=== PATIENT | male | born 1970 | race Caucasian/White ===

== ENCOUNTER 2016-10-14 11:41 | Emergency (ER) | payer SELFPAY ==
--- NOTE | 2016-10-14 12:51 | Emergency Department Report ---
ED ENT HPI - General Chief complaint: Dental/Oral Stated complaint: TOOTH ABCESS Time Seen by Provider: 10/14/16 12:27 Source: patient Mode of arrival: Ambulatory Limitations: No Limitations - History of Present Illness Initial comments: 46-year-old malesignificant past medical history other than smoking presents with complaint of left-sided toothache since yesterday. Patient states he has had dental cavities which she has not yet dressed in his left upper dental molar region. Denies any pus or blood drainage from mouth patient speaking in full sentences denies any fever or chills, states that his gumline feel swollen. This episode started yesterday states he plans on following up with a dentist within the next 2 weeks. Complaining of mild dental pain. Patient denies headache dizziness nausea or abdominal pain chest pain shortness of breath. A O 3 MD complaint: tooth pain Onset/Timin -: days(s) Location: tooth # (13, 14) Severity: moderate Severity scale (0 -10): 5 Quality: aching Consistency: intermittent Worsens with: swallowing, eating Context- Dental: history of dental caries, poor dental care - Related Data Previous Rx's Medication Instructions Recorded Last Taken Type Amoxicillin [Trimox CAP] 500 mg PO Q8H #30 capsule 10/14/16 Unknown Rx Benzocaine [Orajel Liquid 20%] 1 ml MM Q6HR PRN #1 bottle 10/14/16 Unknown Rx Chlorhexidine Mouthwash [Peridex] 118 ml MM BID #1 bottle 10/14/16 Unknown Rx Ibuprofen [Motrin] 800 mg PO Q8HR PRN #25 tablet 10/14/16 Unknown Rx Allergies Allergy/AdvReac Type Severity Reaction Status Date / Time No Known Allergies Allergy Unverified 10/14/16 11:50 ED Dental HPI - General Chief complaint: Dental/Oral Stated complaint: TOOTH ABCESS Time Seen by Provider: 10/14/16 12:27 Source: patient Mode of arrival: Ambulatory Limitations: No Limitations - Related Data Previous Rx's Medication Instructions Recorded Last Taken Type Amoxicillin [Trimox CAP] 500 mg PO Q8H #30 capsule 10/14/16 Unknown Rx Benzocaine [Orajel Liquid 20%] 1 ml MM Q6HR PRN #1 bottle 10/14/16 Unknown Rx Chlorhexidine Mouthwash [Peridex] 118 ml MM BID #1 bottle 10/14/16 Unknown Rx Ibuprofen [Motrin] 800 mg PO Q8HR PRN #25 tablet 10/14/16 Unknown Rx Allergies Allergy/AdvReac Type Severity Reaction Status Date / Time No Known Allergies Allergy Unverified 10/14/16 11:50 ED Review of Systems ROS: Stated complaint: TOOTH ABCESS Other details as noted in HPI Constitutional: denies: chills, fever Eyes: denies: eye pain, eye discharge, vision change ENT: denies: ear pain, throat pain Respiratory: denies: cough, shortness of breath, wheezing Cardiovascular: denies: chest pain, palpitations Endocrine: no symptoms reported Gastrointestinal: denies: abdominal pain, nausea, diarrhea Genitourinary: denies: urgency, dysuria Musculoskeletal: denies: back pain, joint swelling, arthralgia Skin: denies: rash, lesions Neurological: denies: headache, weakness, paresthesias Psychiatric: denies: anxiety, depression Hematological/Lymphatic: denies: easy bleeding, easy bruising ED Past Medical Hx - Past Medical History Previous Medical History?: No - Surgical History Past Surgical History?: No - Social History Smoking Status: Unknown if ever smoked Substance Use Type: None - Medications Home Medications: Home Medications Medication Instructions Recorded Confirmed Last Taken Type Amoxicillin [Trimox CAP] 500 mg PO Q8H #30 capsule 10/14/16 Unknown Rx Benzocaine [Orajel Liquid 20%] 1 ml MM Q6HR PRN #1 bottle 10/14/16 Unknown Rx Chlorhexidine Mouthwash [Peridex] 118 ml MM BID #1 bottle 10/14/16 Unknown Rx Ibuprofen [Motrin] 800 mg PO Q8HR PRN #25 tablet 10/14/16 Unknown Rx ED Physical Exam - General Limitations: No Limitations General appearance: alert, in no apparent distress - Head Head exam: Present: atraumatic, normocephalic - Eye Eye exam: Present: normal appearance, PERRL, EOMI - ENT ENT exam: Present: mucous membranes moist - Expanded ENT Exam Expanded Teeth exam: Present: dental caries, dental tenderness # (Y 13 [id number]) 1 - Dental Tenderness (pain in teeth 13 1415, visible damage to teeth with severe cavities) - Neck Neck exam: Present: normal inspection, full ROM - Respiratory Respiratory exam: Present: normal lung sounds bilaterally. Absent: respiratory distress - Cardiovascular Cardiovascular Exam: Present: regular rate, normal rhythm. Absent: systolic murmur, diastolic murmur, rubs, gallop - GI/Abdominal GI/Abdominal exam: Present: soft, normal bowel sounds - Rectal Rectal exam: Present: deferred - Extremities Exam Extremities exam: Present: normal inspection - Back Exam Back exam: Present: normal inspection - Neurological Exam Neurological exam: Present: alert, oriented X3, CN II-XII intact, normal gait - Psychiatric Psychiatric exam: Present: normal affect, normal mood - Skin Skin exam: Present: warm, dry, intact, normal color. Absent: rash ED Course Vital Signs 10/14/16 11:47 Temperature 98.6 F Pulse Rate 89 Respiratory 18 Rate Blood Pressure 175/112 O2 Sat by Pulse 100 Oximetry ED Medical Decision Making - Medical Decision Making A/P: dental cavities, toothache, dental abscess 1- Motrin when necessary, amoxicillin ten-day course, Orajel when necessary, Peridex mouthwash daily basis, 2- I provided patient with information for multiple dental clinics to follow up and stressed the importance of dental follow-up as he has multiple cavities that require dental fixation or instrumentation 3- no clinical signs of facial abscess, no Cain's angina, no induration or cellulitis of floor of mouth or tongue 4- patient able to tolerate by mouth before discharge 5- no signs of facial infection. Advised patient that if he does not take antibiotics with follow-up with a dentist as soon as possible that a can result in potentially serious or dangerous infection to develop in jaw or face. Patient states that he understood these instructions. I advised patient to return to the ED for any persistent unrelenting nausea or vomiting fever or chills or headaches, pus or blood drainage from mouth. Critical care attestation.: If time is entered above; I have spent that time in minutes in the direct care of this critically ill patient, excluding procedure time. ED Disposition Clinical Impression: Pain due to dental caries Disposition: TO HOME OR SELFCARE Is pt being admited?: No Does the pt Need Aspirin: No Condition: Stable Instructions: Dental Abscess (ED), Dental Caries (ED), Hypertension (ED), Toothache (ED) Additional Instructions: [email or web address] Prescriptions: Amoxicillin [Trimox CAP] 500 mg PO Q8H #30 capsule Benzocaine [Orajel Liquid 20%] 1 ml MM Q6HR PRN #1 bottle PRN Reason: Toothache Chlorhexidine Mouthwash [Peridex] 118 ml MM BID #1 bottle Ibuprofen [Motrin] 800 mg PO Q8HR PRN #25 tablet PRN Reason: Pain Referrals: [facility] [Outside] - 3-5 Days HERSON COLLADO MD [Staff Physician] - 3-5 Days [facility] [Provider Group] - 3-5 Days [facility] [Provider Group] - 3-5 Days Forms: Work/School Release Form(ED) Time of Disposition: 12:51
[2016-10-14 13:12] VITALS: BP 179/93
== END 2016-10-14 13:19 | disposition home or self-care (01) ==
LOC: ED 11:41
DX: K02.9 Dental caries, unspecified (principal)
CPT/HCPCS: 99282

== ENCOUNTER 2017-12-20 12:08 | Inpatient (IN) | payer OTHER ==
[2017-12-20] MEDS ORDERED: ZOFRAN ODT PO ONE (13:09)
[2017-12-20] MEDS ORDERED: BENTYL IM ONE ×2 (13:09→13:12)
[2017-12-20] MEDS ORDERED: TORADOL IM ONE (13:09)
--- NOTE | 2017-12-20 13:11 | Emergency Department Report ---
Blank Doc - Documentation Documentation: Patient is a 47-year-old Male who's had 3 days of central suprapubic abdominal discomfort. Patient states a crampy type pain. He's had 3-4 episodes of vomiting. Patient also had one bout of loose stools this morning. Patient states 3 days ago he had one episode of dysuria that was was excruciating however this is resolved. Patient denies any fevers chills at this time. Patient on focused physical exam does have some suprapubic and right lower quadrant discomfort. There is no rebound or guarding. Patient will have a CT of the abdomen and pelvis performed as well as urinalysis and blood work. Patient is given meds for symptomatic relief
[2017-12-20] MEDS ORDERED: ZOFRAN ODT ONE (13:12)
[2017-12-20] MEDS ORDERED: TORADOL ONE (13:12)
[2017-12-20 13:26] LABS: Basophils % (Auto) 0.2 % (0.0-1.8); Hematocrit 45.3 % (35.5-45.6); Hemoglobin 15.1 gm/dl (11.8-15.2); Lymphocytes # (Auto) 0.5 K/mm3 (1.2-5.4); Mean Corpuscular HGB Conc 33 % (32-34); Mean Corpuscular Hemoglobin 30 pg (28-32); Mean Corpuscular Volume 91 fl (84-94); Monocytes # (Auto) 1.1 K/mm3 (0.0-0.8); Monocytes % (Auto) 9.5 % (0.0-7.3); Platelet Count 321 K/mm3 (140-440); Red Blood Count 4.97 M/mm3 (3.65-5.03)
[2017-12-20 13:42] LABS: Albumin 3.4 g/dL (3.9-5); Calcium 9.2 mg/dL (8.4-10.2)
[2017-12-20] MEDS ORDERED: NACL 0.9% 1000 ML 1,000 ML IV ONE ×3 (14:05→15:27)
--- NOTE | 2017-12-20 14:09 | Cat Scan Report ---
CT ABDOMEN PELVIS WITHOUT CONTRAST: HISTORY: Suprapubic pain, nausea, vomiting and diarrhea. COMPARISON: none. TECHNIQUE: Helical CT in 1.25mm intervals without IV contrast. Sagittal and coronal reconstructions. FINDINGS: Lung bases: Normal. Liver: Normal. Biliary system: There is suggestion of some sludge layering in the gallbladder. No calcified gallstones. No biliary dilatation or inflammation. Pancreas: Normal. Spleen: Normal. Kidneys/ureters/bladder: The kidneys are normal size, contour and position. A punctate calyceal stone is identified at the inferior pole the right kidney. A 1 cm cyst is noted near mid pole of the right kidney. No evidence for ureteral stones or hydronephrosis. The bladder is partially complex but diffuse bladder wall thickening is evident measuring up to 1.2 cm. Cystitis could be considered. Adrenal glands: Normal. Aorta: Normal. Intestines: No oral contrast was administered which limits this exam. Free air is identified along the anterior abdominal wall spanning from the liver to the pelvis. Bowel perforation is highly suspected. The site of perforation appears to be in the sigmoid region where there are numerous diverticula. The sigmoid colon is thickened as well. A perforated diverticulitis could be considered. Appendix: Normal. Ascites: There is small to medium fluid in the pelvis and between bowel loops in the mesentery. No obvious encapsulated mature abscess. Adenopathy: None. Musculoskeletal: Normal. IMPRESSION: Free air in the abdomen consistent with visceral perforation. I suspect this may be secondary to a perforated diverticulum or diverticulitis. Punctate right renal calculus. Thickened bladder wall, correlate for cystitis. Mild degree of fluid in the abdomen as described. Probable sludge in the gallbladder. These findings were discussed with Dr. Johnson in the emergency department at 1404 hrs.
[2017-12-20 14:20] LABS: Bilirubin,Urine NEG (Negative); Blood,Urine MOD (Negative); Color,Urine Yellow (Yellow); Mucus,Urine FEW /HPF; Urobilinogen,Urine < 2.0 mg/dL (<2.0)
--- NOTE | 2017-12-20 14:54 | Emergency Department Report ---
ED Abdominal Pain HPI - General Chief Complaint: Abdominal Pain Stated Complaint: LOWER ABD PAIN Time Seen by Provider: 12/20/17 12:40 Source: patient Mode of arrival: Wheelchair Limitations: No Limitations - History of Present Illness Initial Comments: Patient is a 47-year-old Male who's had 3 days of central suprapubic abdominal discomfort. Patient states a crampy type pain. He's had 3-4 episodes of vomiting. Patient also had one bout of loose stools this morning. Patient states 3 days ago he had one episode of dysuria that was was excruciating however this is resolved. Patient denies any fevers chills at this time. MD Complaint: abdominal pain -: Gradual (3 days) Severity scale (0 -10): 6 Improves With: nothing Worsens With: nothing Associated Symptoms: nausea, vomiting, diarrhea. denies: hematemesis, hematochezia - Related Data Home Medications Medication Instructions Recorded Confirmed Last Taken No Known Home Medications [No 12/20/17 12/20/17 Unknown Reported Home Medications] Allergies Allergy/AdvReac Type Severity Reaction Status Date / Time No Known Allergies Allergy Unverified 10/14/16 11:50 ED Review of Systems ROS: Stated complaint: LOWER ABD PAIN Other details as noted in HPI Comment: All other systems reviewed and negative ED Past Medical Hx - Past Medical History Previous Medical History?: No - Surgical History Past Surgical History?: No - Social History Smoking Status: Never Smoker Substance Use Type: Marijuana - Medications Home Medications: Home Medications Medication Instructions Recorded Confirmed Last Taken Type No Known Home Medications [No 12/20/17 12/20/17 Unknown History Reported Home Medications] ED Physical Exam - General Limitations: No Limitations General appearance: alert, in no apparent distress, cachectic - Head Head exam: Present: atraumatic, normocephalic - Eye Eye exam: Present: normal appearance - ENT ENT exam: Present: mucous membranes moist - Neck Neck exam: Present: normal inspection - Respiratory Respiratory exam: Present: normal lung sounds bilaterally. Absent: respiratory distress, wheezes, rales, rhonchi - Cardiovascular Cardiovascular Exam: Present: regular rate, normal rhythm. Absent: systolic murmur, diastolic murmur, rubs, gallop - GI/Abdominal GI/Abdominal exam: Present: soft, tenderness (suprapubic), hypoactive bowel sounds. Absent: distended, guarding, rebound, rigid, normal bowel sounds - Rectal Rectal exam: Present: deferred - Extremities Exam Extremities exam: Present: normal inspection - Back Exam Back exam: Present: normal inspection - Neurological Exam Neurological exam: Present: alert, oriented X3 - Psychiatric Psychiatric exam: Present: normal affect, normal mood - Skin Skin exam: Present: warm, dry, intact, normal color. Absent: rash ED Course Vital Signs 12/20/17 12/20/17 12/20/17 12:12 12:34 13:19 Temperature 97.9 F Pulse Rate 115 H Respiratory 16 14 15 Rate Blood Pressure 139/93 O2 Sat by Pulse 93 Oximetry 12/20/17 13:32 Temperature Pulse Rate Respiratory 18 Rate Blood Pressure O2 Sat by Pulse Oximetry ED Medical Decision Making - Lab Data Result diagrams: 12/20/17 13:15 12/20/17 13:15 Lab Results 12/20/17 12/20/17 12/20/17 Range/Units 13:15 13:15 13:49 WBC 11.5 H (4.5-11.0) K/mm3 RBC 4.97 (3.65-5.03) M/mm3 Hgb 15.1 (11.8-15.2) gm/dl Hct 45.3 (35.5-45.6) % MCV 91 (84-94) fl MCH 30 (28-32) pg MCHC 33 (32-34) % RDW 14.0 (13.2-15.2) % Plt Count 321 (140-440) K/mm3 Lymph % (Auto) 4.0 L (13.4-35.0) % [place] % (Auto) 9.5 H (0.0-7.3) % Eos % (Auto) 0.0 (0.0-4.3) % Baso % (Auto) 0.2 (0.0-1.8) % Lymph # 0.5 L (1.2-5.4) K/mm3 [place] # 1.1 H (0.0-0.8) K/mm3 Eos # 0.0 (0.0-0.4) K/mm3 Baso # 0.0 (0.0-0.1) K/mm3 Seg Neutrophils % 86.3 H (40.0-70.0) % Seg Neutrophils # 9.9 H (1.8-7.7) K/mm3 Sodium 136 L (137-145) mmol/L Potassium 4.0 (3.6-5.0) mmol/L Chloride 91.3 L (98-107) mmol/L Carbon Dioxide 26 (22-30) mmol/L Anion Gap 23 mmol/L BUN 61 H (9-20) mg/dL Creatinine 2.2 H (0.8-1.5) mg/dL Estimated GFR 33 ml/min BUN/Creatinine Ratio 28 % Glucose 128 H (75-100) mg/dL Calcium 9.2 (8.4-10.2) mg/dL Total Bilirubin 0.90 (0.1-1.2) mg/dL AST 16 (5-40) units/L ALT 13 (7-56) units/L Alkaline Phosphatase 56 (35-129) units/L Total Protein 8.2 (6.3-8.2) g/dL Albumin 3.4 L (3.9-5) g/dL Albumin/Globulin Ratio 0.7 % Urine Color Yellow (Yellow) Urine Turbidity Cloudy (Clear) Urine pH 5.0 (5.0-7.0) Ur Specific [place] 1.020 (1.003-1.030) Urine Protein 100 mg/dl (Negative) mg/dL Urine Glucose (UA) Neg (Negative) mg/dL Urine Ketones Tr (Negative) mg/dL Urine Blood Mod (Negative) Urine Nitrite Neg (Negative) Urine Bilirubin Neg (Negative) Urine Urobilinogen < 2.0 (<2.0) mg/dL Ur Leukocyte Esterase Neg (Negative) Urine WBC (Auto) 5.0 (0.0-6.0) /HPF Urine RBC (Auto) 2.0 (0.0-6.0) /HPF U Epithel Cells (Auto) 1.0 (0-13.0) /HPF Urine Mucus Few /HPF - Radiology Data Patient: ELENA TATUM MR#: [id number] : 1970 Acct:[id number] Age/Sex: 47 / M ADM Date: 12/20/17 Loc: ED Attending Dr: Ordering Physician: JUAN JOHNSON MD Date of Service: 12/20/17 Procedure(s): CT abdomen pelvis wo con Accession Number(s): [id number] cc: JUAN JOHNSON MD CT ABDOMEN PELVIS WITHOUT CONTRAST: HISTORY: Suprapubic pain, nausea, vomiting and diarrhea. COMPARISON: none. TECHNIQUE: Helical CT in 1.25mm intervals without IV contrast. Sagittal and coronal reconstructions. FINDINGS: Lung bases: Normal. Liver: Normal. Biliary system: There is suggestion of some sludge layering in the gallbladder. No calcified gallstones. No biliary dilatation or inflammation. Pancreas: Normal. Spleen: Normal. Kidneys/ureters/bladder: The kidneys are normal size, contour and position. A punctate calyceal stone is identified at the inferior pole the right kidney. A 1 cm cyst is noted near mid pole of the right kidney. No evidence for ureteral stones or hydronephrosis. The bladder is partially complex but diffuse bladder wall thickening is evident measuring up to 1.2 cm. Cystitis could be considered. Adrenal glands: Normal. Aorta: Normal. Intestines: No oral contrast was administered which limits this exam. Free air is identified along the anterior abdominal wall spanning from the liver to the pelvis. Bowel perforation is highly suspected. The site of perforation appears to be in the sigmoid region where there are numerous diverticula. The sigmoid colon is thickened as well. A perforated diverticulitis could be considered. Appendix: Normal. Ascites: There is small to medium fluid in the pelvis and between bowel loops in the mesentery. No obvious encapsulated mature abscess. Adenopathy: None. Musculoskeletal: Normal. IMPRESSION: Free air in the abdomen consistent with visceral perforation. I suspect this may be secondary to a perforated diverticulum or diverticulitis. Punctate right renal calculus. Thickened bladder wall, correlate for cystitis. Mild degree of fluid in the abdomen as described. Probable sludge in the gallbladder. These findings were discussed with Dr. Johnson in the emergency department at 1404 hrs. Transcribed By: TTR Dictated By: HERNANDEZ NOBLE JR, MD Electronically Authenticated By: HERNANDEZ NOBLE JR, MD Signed Date/Time: 12/20/17 1409 - Medical Decision Making Despite the fact that the patient's abdomen is soft patient's CT does have extensive free air consistent with a perforated diverticulum. The patient has slight elevation of white count. Patient also has some renal failure is present. Patient does not have a history of renal failure. Patient started on aggressive IV fluids. Patient started on sepsis protocol. Patient given a dose of Zosyn and with general surgery has been a consulted Patient to be admitted to the hospitalist service under Dr. Evans Critical Care Time: Yes (30) Critical care attestation.: If time is entered above; I have spent that time in minutes in the direct care of this critically ill patient, excluding procedure time. ED Disposition Clinical Impression: Perforated diverticulum, Acute renal failure Disposition: OP ADMIT IP TO THIS HOSP Is pt being admited?: Yes Does the pt Need Aspirin: No Condition: Stable Referrals: PRIMARY CARE, [Primary Care Provider] - 3-5 Days Time of Disposition: 15:29
[2017-12-20] MEDS ORDERED: ZOSYN/NS 4.5GM/100ML 4.5 GM/100 ML VIAL IV SCH (15:00)
--- NOTE | 2017-12-20 15:24 | History and Physical Report ---
History of Present Illness Chief complaint: My stomach hurts History of present illness: 47 YO Male with No PMH presents to ED for evaluation. Pt states that he has experienced abdominal pain over the past 3 days with persistent symptoms over the same time frame. Pt states that pain is 6/10, crampy in nature, associated with nausea, and 3-4 episodes of vomiting, and one loose stools. Pt denies fever , chills, CP, Palpitations, Syncope, Trauma, BRBPR, unintentional weight loss, night sweats, BRBPR, hematuria, flank pain, or recent ill contacts. Pt seen and evaluated in ED and found to have SIRS, ARF, Diverticulosis with Perforated Viscus. Surgery consulted in ED. Past History Past Medical History: No medical history, other (reviewed) Past Surgical History: No surgical history, Other (reviewed) Social history: single. denies: smoking, alcohol abuse, prescription drug abuse Family history: no significant family history (reviewed) Medications and Allergies Allergies Allergy/AdvReac Type Severity Reaction Status Date / Time No Known Allergies Allergy Unverified 10/14/16 11:50 Home Medications Medication Instructions Recorded Confirmed Last Taken Type No Known Home Medications [No 12/20/17 12/20/17 Unknown History Reported Home Medications] Active Meds: Active Medications Piperacillin Sod/Tazobactam Sod (Zosyn/Ns 4.5gm/100ml) 4.5 gm in 100 mls @ 200 mls/hr IV ONCE RENÉ Sodium Chloride (Nacl 0.9% 1000 Ml) 1,000 mls @ 999 mls/hr IV BOLUS ONE Stop: 12/20/17 15:27 Review of Systems Constitutional: no weight loss, no weight gain, no fever, no chills, no sweats Ears, nose, mouth and throat: no ear pain, no ear discharge, no tinnitis, no decreased hearing, no nose pain, no nasal congestion, no nasal discharge, no sinus pressure Cardiovascular: no chest pain, no orthopnea, no palpitations, no rapid/ irregular heart beat, no edema, no syncope Respiratory: no cough, no cough with sputum, no excessive sputum, no hemoptysis Gastrointestinal: nausea, vomiting Rectal: no pain, no incontinence, no bleeding Musculoskeletal: no neck stiffness, no neck pain, no shooting arm pain, no arm numbness/tingling, no low back pain Integumentary: no rash, no pruritis, no redness, no sores, no wounds Neurological: no head injury, no transient paralysis, no paralysis, no weakness , no parathesias, no numbness, no tingling Psychiatric: no anxiety, no memory loss, no change in sleep habits, no sleep disturbances, no insomnia, no hypersomnia, no change in appetite, no change in libido Endocrine: no cold intolerance, no heat intolerance, no polyphagia, no excessive thirst, no polydipsia, no polyuria, no nocturia, no excessive sweating Hematologic/Lymphatic: no easy bruising, no easy bleeding, no lymphadenopathy, no lymphedema Allergic/Immunologic: no urticaria, no allergic rhinitis, no wheezing, no persistent infections, no anaphylaxis Exam - Constitutional Vitals: Temp Pulse Resp BP Pulse Ox 97.9 F 115 H 18 139/93 93 12/20/17 12:12 12/20/17 12:12 12/20/17 13:32 12/20/17 12:12 12/20/17 12:12 General appearance: Present: mild distress - EENT Eyes: Present: PERRL ENT: hearing intact, clear oral mucosa - Neck Neck: Present: supple, normal ROM - Respiratory Respiratory effort: normal Respiratory: bilateral: CTA - Cardiovascular Heart Sounds: Present: S1 & S2. Absent: rub, click - Extremities Extremities: pulses symmetrical, No edema Peripheral Pulses: within normal limits - Abdominal General gastrointestinal: Present: soft, non-tender, non-distended, normal bowel sounds Male genitourinary: Present: normal - Integumentary Integumentary: Present: clear, warm, dry - Musculoskeletal Musculoskeletal: gait normal, strength equal bilaterally - Psychiatric Psychiatric: appropriate mood/affect, intact judgment & insight - Neurologic Neurologic: CNII-XII intact, moves all extremities Results - Labs CBC & Chem 7: 12/20/17 13:15 12/20/17 13:15 Labs: Abnormal lab results 12/20/17 12/20/17 Range/Units 13:15 13:15 WBC 11.5 H (4.5-11.0) K/mm3 Lymph % (Auto) 4.0 L (13.4-35.0) % [place] % (Auto) 9.5 H (0.0-7.3) % Lymph # 0.5 L (1.2-5.4) K/mm3 [place] # 1.1 H (0.0-0.8) K/mm3 Seg Neutrophils % 86.3 H (40.0-70.0) % Seg Neutrophils # 9.9 H (1.8-7.7) K/mm3 Sodium 136 L (137-145) mmol/L Chloride 91.3 L (98-107) mmol/L BUN 61 H (9-20) mg/dL Creatinine 2.2 H (0.8-1.5) mg/dL Glucose 128 H (75-100) mg/dL Albumin 3.4 L (3.9-5) g/dL Assessment and Plan - Patient Problems (1) SIRS (systemic inflammatory response syndrome) Current Visit: Yes Status: Acute Plan to address problem: IV antibiotic therapy, blood cultures, CBC, CMP, chest x ray, urinalysis, serial lactic acid. (2) Diverticulosis Current Visit: Yes Status: Acute Qualifiers: Diverticulosis site: diverticulosis of large intestine Plan to address problem: CT Abdomen pelvis, IVF resuscitation, serial abdominal exam, NPO, (3) Acute renal failure Current Visit: Yes Status: Acute Qualifiers: Acute renal failure type: with acute tubular necrosis Qualified Code(s): N17.0 - Acute kidney failure with tubular necrosis Plan to address problem: IVF resuscitation, monitor uop q shift, supportive care. (4) Perforated diverticulum Current Visit: Yes Status: Acute Plan to address problem: CT Abdomen pelvis, serial abdominal exam, surgery consulted, NPO, IVF resuscitation. (5) DVT prophylaxis Current Visit: Yes Status: Acute Plan to address problem: SCD to BLE while in bed.
[2017-12-20] MEDS ORDERED: SODIUM CHLORIDE FLUSH SYRINGE 10 ML IV PRN (15:26)
[2017-12-20] MEDS ORDERED: MORPHINE IV PRN (15:26)
[2017-12-20] MEDS ORDERED: TYLENOL PO PRN (15:26)
[2017-12-20] MEDS ORDERED: PROVENTIL IH PRN (15:26)
[2017-12-20] MEDS ORDERED: ZOFRAN IV PRN (15:26)
--- NOTE | 2017-12-20 15:30 | Anesthesia Consultation ---
Anesthesia Consult and Med Hx Date of service: 12/20/17 - Airway Anesthetic Teeth Evaluation: Poor ROM Head & Neck: Adequate Mental/Hyoid Distance: Adequate Mallampati Class: Class I Intubation Access Assessment: Good - Pulmonary Exam CTA: No (exp rhoncii) - Cardiac Exam Cardiac Exam: RRR - Pre-Operative Health Status ASA Pre-Surgery Classification: ASA2 Proposed Anesthetic Plan: MAC - Pre-Anesthesia Comment Pre-Anesthesia Comments: admitted with abdominal pain. CT impression-free air consistent with perforated visceral, may be secondary to diverticulum/ diverticulitis. - Pulmonary Hx Smoking: Yes (marijuana ) Hx Respiratory Symptoms: Yes (recent cold 7 days ago, productive cough ) - Endocrine Hx Renal Disease: No (elevated creatinine, 2.2 )
[2017-12-20] MEDS ORDERED: LEVAQUIN 500MG/100ML 500 MG/100 ML BAG IV NR (16:00)
[2017-12-20] MEDS ORDERED: FLAGYL 500 MG/100 ML 500 MG/100 ML BAG IV SCH (16:00)
[2017-12-20] MEDS ORDERED: D5/0.45NS 1,000 ML IV SCH (16:00)
--- NOTE | 2017-12-20 17:54 | Consultation ---
History of Present Illness Consult date: 12/20/17 Chief complaint: abdominal pain - History of present illness History of present illness: 47 yo M with no PMHx presents to ER with 2 days of crampy suprapubic abdominal pain. He states that the pain was moderate in intensity upon onset and has gradually improved. It does not radiate. The pain was associated with nausea and so the patient forced himself to drink water and vomit until the emesis was clear. He also tried some charcoal to help with the pain. He states he was having normal BMs and the last BM was loose. He is passing flatus. He admits to intermittent chills. No measured fever. No sick contacts. He has never had symptoms like this in the past. He has never had a colonoscopy. He also admits to pain with urination and difficulty urinating. He has not had a solid meal in 2 days but has been drinking water. At this time the patient states his pain is better. He is not nauseated. Past History Past Medical History: No medical history Past Surgical History: No surgical history Social history: smoking (marijuana). denies: alcohol abuse, prescription drug abuse Family history: no significant family history (no family history of colon or Gi malignancy) Medications and Allergies Allergies Allergy/AdvReac Type Severity Reaction Status Date / Time No Known Allergies Allergy Unverified 10/14/16 11:50 Home Medications Medication Instructions Recorded Confirmed Last Taken Type No Known Home Medications [No 12/20/17 12/20/17 Unknown History Reported Home Medications] Active Meds: Active Medications Acetaminophen (Tylenol) 650 mg PO Q4H PRN PRN Reason: Pain MILD(1-3)/Fever >100.5/SERNA Albuterol (Proventil) 2.5 mg IH Q4HRT PRN PRN Reason: Shortness Of Breath Piperacillin Sod/Tazobactam Sod (Zosyn/Ns 4.5gm/100ml) 4.5 gm in 100 mls @ 200 mls/hr IV ONCE RENÉ Last Admin: 12/20/17 15:31 Dose: 200 mls/hr Levofloxacin/Dextrose (Levaquin 500mg/100ml) 500 mg in 100 mls @ 100 mls/hr IV PREOP NR; Protocol Stop: 12/21/17 06:00 Metronidazole (Flagyl 500 Mg/100 Ml) 500 mg in 100 mls @ 200 mls/hr IV ONCE RENÉ ; Protocol Sodium Chloride (Nacl 0.9% 1000 Ml) 1,000 mls @ 150 mls/hr IV ONCE ONE Stop: 12/20/17 22:06 Metronidazole (Flagyl 500 Mg/100 Ml) 500 mg in 100 mls @ 100 mls/hr IV Q8HR RENÉ ; Protocol Sodium Chloride (Nacl 0.9% 1000 Ml) 1,000 mls @ 125 mls/hr IV DIRECT RENÉ Levofloxacin/Dextrose (Levaquin 500mg/100ml) 500 mg in 100 mls @ 100 mls/hr IV Q24HR RENÉ; Protocol Morphine Sulfate (Morphine) 2 mg IV Q4H PRN PRN Reason: Pain, Moderate (4-6) Ondansetron HCl (Zofran) 4 mg IV Q8H PRN PRN Reason: Nausea And Vomiting Sodium Chloride (Sodium Chloride Flush Syringe 10 Ml) 10 ml IV BID RENÉ Sodium Chloride (Sodium Chloride Flush Syringe 10 Ml) 10 ml IV PRN PRN PRN Reason: LINE FLUSH Review of Systems All systems: negative (10 pt ROS performed and negative except for that listed in HPI) Exam Vital Signs Temp Pulse Resp BP Pulse Ox 97.9 F 115 H 16 139/93 93 12/20/17 12:12 12/20/17 12:12 12/20/17 12:12 12/20/17 12:12 12/20/17 12:12 Narrative exam: Gen: AAOx3. NAD ENT: no scleral icterus or conjunctival pallor CV: S1, s2+ Resp: even and unlabored Abd: soft, ND, mild TTP in suprapubic region and LLQ. no r/r/g Ext: no c/c/e Results - Labs 12/20/17 13:15 12/20/17 13:15 Abnormal lab results 12/20/17 12/20/17 Range/Units 13:15 13:15 WBC 11.5 H (4.5-11.0) K/mm3 Lymph % (Auto) 4.0 L (13.4-35.0) % Davison % (Auto) 9.5 H (0.0-7.3) % Lymph # 0.5 L (1.2-5.4) K/mm3 Davison # 1.1 H (0.0-0.8) K/mm3 Seg Neutrophils % 86.3 H (40.0-70.0) % Seg Neutrophils # 9.9 H (1.8-7.7) K/mm3 Sodium 136 L (137-145) mmol/L Chloride 91.3 L (98-107) mmol/L BUN 61 H (9-20) mg/dL Creatinine 2.2 H (0.8-1.5) mg/dL Glucose 128 H (75-100) mg/dL Albumin 3.4 L (3.9-5) g/dL Diabetes panel 12/20/17 Range/Units 13:15 Sodium 136 L (137-145) mmol/L Potassium 4.0 (3.6-5.0) mmol/L Chloride 91.3 L (98-107) mmol/L Carbon Dioxide 26 (22-30) mmol/L BUN 61 H (9-20) mg/dL Creatinine 2.2 H (0.8-1.5) mg/dL Glucose 128 H (75-100) mg/dL Calcium 9.2 (8.4-10.2) mg/dL AST 16 (5-40) units/L ALT 13 (7-56) units/L Alkaline Phosphatase 56 (35-129) units/L Total Protein 8.2 (6.3-8.2) g/dL Albumin 3.4 L (3.9-5) g/dL Calcium panel 12/20/17 Range/Units 13:15 Calcium 9.2 (8.4-10.2) mg/dL Albumin 3.4 L (3.9-5) g/dL Pituitary panel 12/20/17 Range/Units 13:15 Sodium 136 L (137-145) mmol/L Potassium 4.0 (3.6-5.0) mmol/L Chloride 91.3 L (98-107) mmol/L Carbon Dioxide 26 (22-30) mmol/L BUN 61 H (9-20) mg/dL Creatinine 2.2 H (0.8-1.5) mg/dL Glucose 128 H (75-100) mg/dL Calcium 9.2 (8.4-10.2) mg/dL Adrenal panel 12/20/17 Range/Units 13:15 Sodium 136 L (137-145) mmol/L Potassium 4.0 (3.6-5.0) mmol/L Chloride 91.3 L (98-107) mmol/L Carbon Dioxide 26 (22-30) mmol/L BUN 61 H (9-20) mg/dL Creatinine 2.2 H (0.8-1.5) mg/dL Glucose 128 H (75-100) mg/dL Calcium 9.2 (8.4-10.2) mg/dL Total Bilirubin 0.90 (0.1-1.2) mg/dL AST 16 (5-40) units/L ALT 13 (7-56) units/L Alkaline Phosphatase 56 (35-129) units/L Total Protein 8.2 (6.3-8.2) g/dL Albumin 3.4 L (3.9-5) g/dL - Imaging CT scan - abdomen: report reviewed, image reviewed CT scan - pelvis: report reviewed, image reviewed Assessment and Plan 47 yo M with 1. pneumoperitoneum, likely perforated diverticulitis 2. BRONWYN likely secondary to dehydration Plan; 1. Based on the patients clinical findings, he is stable without peritoneal signs or significant abdominal pain. The perforation has likely sealed off. We will admit patient to hospitalist service 2. strict NPO 3. IVF - NS@150cc/hr. Pt received multiple 1L NS boluses in ER 4. prn pain and nausea control 5. 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 DVT ppx 7. activity as tolerated 8. serial abdominal exams. If patient does not improve clinically or abdominal exam/labs worsen, he may require diagnostic laparoscopy, washout. I discussed the options of surgery and conservative management with the patient and he understands and is agreeable to the plan. Thank you for this consultation, please call with questions or concerns.
[2017-12-20] MEDS ORDERED: MAXIPIME/NS 2 GM/100 ML 2 GM/100 ML BAG IV SCH ×2 (18:00→22:00)
[2017-12-20] MEDS: NACL 0.9% 1000 ML 1,000 ML IV SCH (18:54)
[2017-12-20] MEDS: FLAGYL 500 MG/100 ML 500 MG/100 ML BAG IV SCH (23:18)
[2017-12-20] MEDS: SODIUM CHLORIDE FLUSH SYRINGE 10 ML IV SCH (23:18)
[2017-12-21] MEDS: NACL 0.9% 1000 ML 1,000 ML IV SCH (04:10)
[2017-12-21] MEDS: FLAGYL 500 MG/100 ML 500 MG/100 ML BAG IV SCH ×3 (05:28→21:27)
[2017-12-21 05:43] LABS: Basophils % (Auto) 0.2 % (0.0-1.8); Hematocrit 37.7 % (35.5-45.6); Hemoglobin 12.7 gm/dl (11.8-15.2); Lymphocytes # (Auto) 0.4 K/mm3 (1.2-5.4); Lymphocytes % (Auto) 3.3 % (13.4-35.0); Mean Corpuscular HGB Conc 34 % (32-34); Mean Corpuscular Hemoglobin 31 pg (28-32); Mean Corpuscular Volume 91 fl (84-94); Monocytes % (Auto) 7.6 % (0.0-7.3); Platelet Count 296 K/mm3 (140-440); Red Blood Count 4.16 M/mm3 (3.65-5.03); Red Cell Distribution Width 14.2 % (13.2-15.2)
[2017-12-21 06:00] LABS: Calcium 8.3 mg/dL (8.4-10.2)
[2017-12-21] MEDS: SODIUM CHLORIDE FLUSH SYRINGE 10 ML IV SCH ×2 (09:51→21:27)
[2017-12-21] MEDS ORDERED: LEVAQUIN 250MG/50ML 250 MG/50 ML BAG IV SCH (10:00)
[2017-12-21] MEDS ORDERED: LEVAQUIN 500MG/100ML 500 MG/100 ML BAG IV SCH (10:00)
--- NOTE | 2017-12-21 13:35 | Progress Note ---
Assessment and Plan 47 yo M with 1. pneumoperitoneum, likely perforated diverticulitis 2. BRONWYN likely secondary to dehydration 3. pelvic fluid, possible abscess Plan: Patient continues to remain stable without abdominal pain. WBC mildly increased 1. NPO except ice chips 2. IVF - change to D5NS, BUN/Game Attendant improving 3. prn pain and nausea control 4. repeat CT scan A/P with oral, rectal, and IV contrast in AM 12/22/17 5. DVT ppx 6. activity as tolerated 7. repeat CBC and BMP in am 8. monitor for fevers Further recs pending Ct scan in AM. D/W Dr. Shook and case management Thank you for this consultation, please call with questions or concerns. Subjective Date of service: 12/21/17 Narrative: Pt seen and examined. States abdominal pain has resolved. He is having flatus but has not had a BM. + temp of 100.3 but patient states he had on multiple sheets prior to this measurement. He is hungry. No n/v. Objective Vital Signs - 12hr 12/21/17 12/21/17 04:41 09:30 Temperature 99.9 F H Pulse Rate 95 H Respiratory 18 Rate Blood Pressure 133/95 O2 Sat by Pulse 94 96 Oximetry - General physical appearance Narrative Exam: Gen: AAOx3. NAD CV: S1, S2+ Resp; even and unlabored Abd: soft, mildly distended, NT. no r/r/g Ext: no c/c/e - Labs 12/21/17 05:13 12/21/17 05:13 Diabetes panel 12/20/17 12/21/17 Range/Units 13:15 05:13 Sodium 136 L 141 (137-145) mmol/L Potassium 4.0 4.1 (3.6-5.0) mmol/L Chloride 91.3 L 101.6 (98-107) mmol/L Carbon Dioxide 26 26 (22-30) mmol/L BUN 61 H 50 H (9-20) mg/dL Creatinine 2.2 H 1.4 (0.8-1.5) mg/dL Glucose 128 H 109 H (75-100) mg/dL Calcium 9.2 8.3 L (8.4-10.2) mg/dL AST 16 (5-40) units/L ALT 13 (7-56) units/L Alkaline Phosphatase 56 (35-129) units/L Total Protein 8.2 (6.3-8.2) g/dL Albumin 3.4 L (3.9-5) g/dL Calcium panel 12/20/17 12/21/17 Range/Units 13:15 05:13 Calcium 9.2 8.3 L (8.4-10.2) mg/dL Albumin 3.4 L (3.9-5) g/dL Pituitary panel 12/20/17 12/21/17 Range/Units 13:15 05:13 Sodium 136 L 141 (137-145) mmol/L Potassium 4.0 4.1 (3.6-5.0) mmol/L Chloride 91.3 L 101.6 (98-107) mmol/L Carbon Dioxide 26 26 (22-30) mmol/L BUN 61 H 50 H (9-20) mg/dL Creatinine 2.2 H 1.4 (0.8-1.5) mg/dL Glucose 128 H 109 H (75-100) mg/dL Calcium 9.2 8.3 L (8.4-10.2) mg/dL Adrenal panel 12/20/17 12/21/17 Range/Units 13:15 05:13 Sodium 136 L 141 (137-145) mmol/L Potassium 4.0 4.1 (3.6-5.0) mmol/L Chloride 91.3 L 101.6 (98-107) mmol/L Carbon Dioxide 26 26 (22-30) mmol/L BUN 61 H 50 H (9-20) mg/dL Creatinine 2.2 H 1.4 (0.8-1.5) mg/dL Glucose 128 H 109 H (75-100) mg/dL Calcium 9.2 8.3 L (8.4-10.2) mg/dL Total Bilirubin 0.90 (0.1-1.2) mg/dL AST 16 (5-40) units/L ALT 13 (7-56) units/L Alkaline Phosphatase 56 (35-129) units/L Total Protein 8.2 (6.3-8.2) g/dL Albumin 3.4 L (3.9-5) g/dL
[2017-12-21] MEDS: D5NS 1,000 ML IV SCH ×2 (14:04→21:30)
--- NOTE | 2017-12-21 18:38 | Progress Note ---
Assessment and Plan Assessment and plan: 47 YO Male with No PMH presents to ED for evaluation. Pt states that he has experienced abdominal pain over the past 3 days with persistent symptoms over the same time frame. Pt states that pain is 6/10, crampy in nature, associated with nausea, and 3-4 episodes of vomiting, and one loose stools. Pt denies fever , chills, CP, Palpitations, Syncope, Trauma, BRBPR, unintentional weight loss, night sweats, BRBPR, hematuria, flank pain, or recent ill contacts. Pt seen and evaluated in ED and found to have SIRS, ARF, Diverticulosis with Perforated Viscus. Peritonitis Penuomperitoneum with possible perforated diverticulitis BRONWYN secondary to vasomotor nephropathy-improving Sepsis secondary to above Possible Pelvic abscess Plan Continue supportive care Repeat CT abd and pelvis in am per discussion with surgery IV abx Pain control IVF- D5NS Encourage ambulation DVT/GI PROPHY History Interval history: Patient seen and examined states he is hungry, less pain reported today but has been NPO Hospitalist Physical - Constitutional Vitals: Temp Pulse Resp BP Pulse Ox 99.9 F H 95 H 18 133/95 96 12/21/17 04:41 12/21/17 04:41 12/21/17 04:41 12/21/17 04:41 12/21/17 09:30 General appearance: Present: mild distress - EENT Eyes: Present: PERRL ENT: hearing intact, clear oral mucosa, dentition normal - Neck Neck: Present: supple, normal ROM - Respiratory Respiratory effort: normal Respiratory: bilateral: CTA - Cardiovascular Rhythm: regular Heart Sounds: Present: S1 & S2. Absent: systolic murmur - Extremities Extremities: no ischemia, pulses intact, pulses symmetrical, No edema, normal temperature, normal color, Full ROM Peripheral Pulses: within normal limits - Abdominal General gastrointestinal: soft, tender, non-distended, normal bowel sounds - Integumentary Integumentary: Present: clear, warm, dry - Psychiatric Psychiatric: appropriate mood/affect, intact judgment & insight, memory intact, cooperative - Neurologic Neurologic: CNII-XII intact - Allied Health Allied health notes reviewed: nursing Results - Labs CBC & Chem 7: 12/21/17 05:13 12/21/17 05:13 Labs: Laboratory Last Values WBC 13.3 K/mm3 (4.5-11.0) H 12/21/17 05:13 RBC 4.16 M/mm3 (3.65-5.03) 12/21/17 05:13 Hgb 12.7 gm/dl (11.8-15.2) 12/21/17 05:13 Hct 37.7 % (35.5-45.6) D 12/21/17 05:13 MCV 91 fl (84-94) 12/21/17 05:13 MCH 31 pg (28-32) 12/21/17 05:13 MCHC 34 % (32-34) 12/21/17 05:13 RDW 14.2 % (13.2-15.2) 12/21/17 05:13 Plt Count 296 K/mm3 (140-440) 12/21/17 05:13 Lymph % (Auto) 3.3 % (13.4-35.0) L 12/21/17 05:13 Posey % (Auto) 7.6 % (0.0-7.3) H 12/21/17 05:13 Eos % (Auto) 0.0 % (0.0-4.3) 12/21/17 05:13 Baso % (Auto) 0.2 % (0.0-1.8) 12/21/17 05:13 Lymph # 0.4 K/mm3 (1.2-5.4) L 12/21/17 05:13 Posey # 1.0 K/mm3 (0.0-0.8) H 12/21/17 05:13 Eos # 0.0 K/mm3 (0.0-0.4) 12/21/17 05:13 Baso # 0.0 K/mm3 (0.0-0.1) 12/21/17 05:13 Seg Neutrophils % 88.9 % (40.0-70.0) H 12/21/17 05:13 Seg Neutrophils # 11.8 K/mm3 (1.8-7.7) H 12/21/17 05:13 Sodium 141 mmol/L (137-145) 12/21/17 05:13 Potassium 4.1 mmol/L (3.6-5.0) 12/21/17 05:13 Chloride 101.6 mmol/L (98-107) 12/21/17 05:13 Carbon Dioxide 26 mmol/L (22-30) 12/21/17 05:13 Anion Gap 18 mmol/L 12/21/17 05:13 BUN 50 mg/dL (9-20) H 12/21/17 05:13 Creatinine 1.4 mg/dL (0.8-1.5) 12/21/17 05:13 Estimated GFR 55 ml/min 12/21/17 05:13 BUN/Creatinine Ratio 36 % 12/21/17 05:13 Glucose 109 mg/dL (75-100) H 12/21/17 05:13 Lactic Acid 1.80 mmol/L (0.7-2.0) 12/20/17 14:38 Calcium 8.3 mg/dL (8.4-10.2) L 12/21/17 05:13 Total Bilirubin 0.90 mg/dL (0.1-1.2) 12/20/17 13:15 AST 16 units/L (5-40) 12/20/17 13:15 ALT 13 units/L (7-56) 12/20/17 13:15 Alkaline Phosphatase 56 units/L (35-129) 12/20/17 13:15 Total Protein 8.2 g/dL (6.3-8.2) 12/20/17 13:15 Albumin 3.4 g/dL (3.9-5) L 12/20/17 13:15 Albumin/Globulin Ratio 0.7 % 12/20/17 13:15 Urine Color Yellow (Yellow) 12/20/17 13:49 Urine Turbidity Cloudy (Clear) 12/20/17 13:49 Urine pH 5.0 (5.0-7.0) 12/20/17 13:49 Ur Specific [place] 1.020 (1.003-1.030) 12/20/17 13:49 Urine Protein 100 mg/dl mg/dL (Negative) 12/20/17 13:49 Urine Glucose (UA) Neg mg/dL (Negative) 12/20/17 13:49 Urine Ketones Tr mg/dL (Negative) 12/20/17 13:49 Urine Blood Mod (Negative) 12/20/17 13:49 Urine Nitrite Neg (Negative) 12/20/17 13:49 Urine Bilirubin Neg (Negative) 12/20/17 13:49 Urine Urobilinogen < 2.0 mg/dL (<2.0) 12/20/17 13:49 Ur Leukocyte Esterase Neg (Negative) 12/20/17 13:49 Urine WBC (Auto) 5.0 /HPF (0.0-6.0) 12/20/17 13:49 Urine RBC (Auto) 2.0 /HPF (0.0-6.0) 12/20/17 13:49 U Epithel Cells (Auto) 1.0 /HPF (0-13.0) 12/20/17 13:49 Urine Mucus Few /HPF 12/20/17 13:49 - Imaging and Cardiology CT scan - abdomen: pending CT scan - pelvis: pending
[2017-12-22] MEDS: D5NS 1,000 ML IV SCH ×2 (05:56→22:31)
[2017-12-22] MEDS: FLAGYL 500 MG/100 ML 500 MG/100 ML BAG IV SCH ×3 (05:56→22:28)
[2017-12-22 06:32] LABS: Hematocrit 34.9 % (35.5-45.6); Hemoglobin 11.6 gm/dl (11.8-15.2); Mean Corpuscular HGB Conc 33 % (32-34); Mean Corpuscular Hemoglobin 31 pg (28-32); Mean Corpuscular Volume 92 fl (84-94); Platelet Count 262 K/mm3 (140-440); Red Cell Distribution Width 14.4 % (13.2-15.2)
[2017-12-22 06:58] LABS: BUN/Creatinine Ratio 27; Blood Urea Nitrogen 24 mg/dL (9-20); Calcium 8.3 mg/dL (8.4-10.2); Hemolysis Index 5
[2017-12-22] MEDS: LEVAQUIN 500MG/100ML 500 MG/100 ML BAG IV SCH (09:12)
[2017-12-22] MEDS: SODIUM CHLORIDE FLUSH SYRINGE 10 ML IV SCH (09:13)
[2017-12-22] MEDS ORDERED: NACL 0.9% 250 ML ONE (10:46)
[2017-12-22] MEDS ORDERED: VERSED IV ONE (13:08)
[2017-12-22] MEDS ORDERED: SUBLIMAZE IV ONE (13:08)
--- NOTE | 2017-12-22 13:23 | Consultation ---
History of Present Illness - Reason for Consult Consult date: 12/22/17 - History of Present Illness Patient with a several day history of abdominal pain noted to have a diverticular abscess. Continues to complain of abdominal pain and nausea. Past History Past Medical History: No medical history, other (reviewed) Past Surgical History: No surgical history, Other (reviewed) Social history: single. denies: smoking, alcohol abuse, prescription drug abuse Family history: no significant family history (reviewed) Medications and Allergies Allergies Allergy/AdvReac Type Severity Reaction Status Date / Time No Known Allergies Allergy Unverified 10/14/16 11:50 Home Medications Medication Instructions Recorded Confirmed Last Taken Type No Known Home Medications [No 12/20/17 12/20/17 Unknown History Reported Home Medications] Active Meds: Active Medications Acetaminophen (Tylenol) 650 mg PO Q4H PRN PRN Reason: Pain MILD(1-3)/Fever >100.5/SERNA Albuterol (Proventil) 2.5 mg IH Q4HRT PRN PRN Reason: Shortness Of Breath Metronidazole (Flagyl 500 Mg/100 Ml) 500 mg in 100 mls @ 100 mls/hr IV Q8HR RENÉ ; Protocol Last Admin: 12/22/17 05:56 Dose: 100 mls/hr Levofloxacin/Dextrose (Levaquin 500mg/100ml) 500 mg in 100 mls @ 100 mls/hr IV Q24HR RENÉ; Protocol Last Admin: 12/22/17 09:12 Dose: 100 mls/hr Dextrose/Sodium Chloride (D5ns) 1,000 mls @ 125 mls/hr IV DIRECT RENÉ Last Admin: 12/22/17 05:56 Dose: 125 mls/hr Morphine Sulfate (Morphine) 2 mg IV Q4H PRN PRN Reason: Pain, Moderate (4-6) Ondansetron HCl (Zofran) 4 mg IV Q8H PRN PRN Reason: Nausea And Vomiting Sodium Chloride (Sodium Chloride Flush Syringe 10 Ml) [address] [facility] Last Admin: 12/22/17 09:13 Dose: 10 ml Sodium Chloride (Sodium Chloride Flush Syringe 10 Ml) 10 ml IV PRN PRN PRN Reason: LINE FLUSH Review of Systems All systems: negative Exam - Constitutional Vitals: Temp Pulse Resp BP Pulse Ox 98.5 F 88 18 140/91 96 12/22/17 04:47 12/22/17 04:47 12/22/17 04:47 12/22/17 04:47 12/22/17 04:47 General appearance: Present: no acute distress - EENT Eyes: Present: PERRL ENT: hearing intact - Neck Neck: Present: supple, normal ROM - Respiratory Respiratory effort: normal - Extremities Extremities: no ischemia - Abdominal General gastrointestinal: Present: soft - Rectal Rectal Exam: deferred - Integumentary Integumentary: Present: clear - Psychiatric Psychiatric: appropriate mood/affect, cooperative - Neurologic Neurologic: no focal deficits Results - Labs CBC & Chem 7: 12/22/17 05:56 12/22/17 05:56 Labs: Abnormal lab results 12/22/17 12/22/17 Range/Units 05:56 05:56 WBC 14.4 H (4.5-11.0) K/mm3 Hgb 11.6 L (11.8-15.2) gm/dl Hct 34.9 L (35.5-45.6) % Chloride 107.8 H (98-107) mmol/L BUN 24 H (9-20) mg/dL Glucose 118 H (75-100) mg/dL Calcium 8.3 L (8.4-10.2) mg/dL - Imaging and Cardiology CT scan - abdomen: image reviewed CT scan - pelvis: image reviewed Assessment and Plan We'll place drain and patient's diverticular abscess today.
[2017-12-22] MEDS ORDERED: XYLOCAINE 1% 20 mL ONE (13:34)
--- NOTE | 2017-12-22 15:29 | Cat Scan Report ---
Exam: CT-guided placement of abscess drain Clinical indication: Patient with history of diverticular abscess Date: 12/22/2017 Procedure: Following explanation of risks, benefits and alternative; written consent was obtained. Patient was brought to the CT suite and placed in prone position on the examination table. Initial therapist's assistant images of the lower abdomen and pelvis were performed an appropriate access site was chosen along the right gluteus. The patient's lower back and pelvis were prepped and draped in the usual sterile fashion. 1% lidocaine was used for anesthesia. Using intermittent CT guidance, a 15 cm 17-gauge trocar needle was advanced into the fluid collection in the dependent portion of the pelvis. There was prompt return of purulent fluid. The trocar was removed and a 0.035 guidewire advanced and coiled within the fluid collection. CT images were saved to document appropriate positioning. Following serial dilation over the guidewire, an 8 Syrian pigtail drainage catheter was placed over the guidewire and positioned with the pigtail in the central aspect of the fluid collection. A total of 50 mL's seropurulent fluid was aspirated. Sample sent for laboratory analysis. The catheter was actually passed and the skin surface using 2-0 Ethilon suture and a Stayfix device and placed to NGUYEN bulb drainage. A sterile dressing was then applied. The patient tolerated the procedure well there were no immediate post procedure complications. Conscious sedation was performed of the radiologic nursing. Continuous cardiopulmonary monitoring was utilized. Impression: 1) CT-guided placement of 8 Syrian drainage catheter in diverticular abscess within the dependent portion of the pelvis. Samples were sent for laboratory analysis.
--- NOTE | 2017-12-22 15:39 | Progress Note ---
Assessment and Plan 47 yo M with 1. pneumoperitoneum, secondary to complicated sigmoid diverticulitis with contained perforation 2. BRONWYN likely secondary to dehydration 3. pelvic abscess Plan: WBC increased. CT scan from today reviewed - large pelvic collection, highly suspicious for abscess. Sigmoid diverticulitis. No oral or rectal contrast extravasation. Ileus. Official radiology read pending 1. trial of sips of clear liquids 2. IVF - continue with maintenance fluids 3. prn pain and nausea control 4. DVT ppx 5. activity as tolerated 6. CBC in am 7. strict I/Os 8. Discussed CT results with Dr. Verduzco and IR consult ordered - pt is now s/p drainage of pelvic diverticular abscess 8. home care consult, discussed with case management 9. IV abx Further recs pending Ct scan in AM. Subjective Date of service: 12/22/17 Narrative: Pt seen and examined. Had one episode of emesis this afternoon after returning from IR. States he feels much better. Denies abdominal pain. Asking for liquids. No f/c. Objective Vital Signs - 12hr 12/22/17 12/22/17 12/22/17 04:47 13:33 13:41 Temperature 98.5 F Pulse Rate 88 Pulse Rate [ 85 83 Intra-Procedure ] Pulse Rate [ Post-Procedure] Respiratory 18 Rate Respiratory 26 H 22 Rate [Intra- Procedure] Respiratory Rate [Post- Procedure] Blood Pressure 140/91 Blood Pressure 164/107 159/106 [Intra- Procedure] Blood Pressure [Post-Procedure ] O2 Sat by Pulse 96 Oximetry O2 Sat by Pulse 99 99 Oximetry [ Intra-Procedure ] O2 Sat by Pulse Oximetry [Post -Procedure] 12/22/17 12/22/17 12/22/17 13:45 13:50 14:01 Temperature Pulse Rate Pulse Rate [ 89 88 Intra-Procedure ] Pulse Rate [ 103 H Post-Procedure] Respiratory Rate Respiratory 21 23 Rate [Intra- Procedure] Respiratory 22 Rate [Post- Procedure] Blood Pressure Blood Pressure 152/111 156/109 [Intra- Procedure] Blood Pressure 167/111 [Post-Procedure ] O2 Sat by Pulse Oximetry O2 Sat by Pulse 99 99 Oximetry [ Intra-Procedure ] O2 Sat by Pulse 99 Oximetry [Post -Procedure] - Labs 12/22/17 05:56 12/22/17 05:56 Diabetes panel 12/22/17 Range/Units 05:56 Sodium 144 (137-145) mmol/L Potassium 3.7 (3.6-5.0) mmol/L Chloride 107.8 H (98-107) mmol/L Carbon Dioxide 27 (22-30) mmol/L BUN 24 H (9-20) mg/dL Creatinine 0.9 (0.8-1.5) mg/dL Glucose 118 H (75-100) mg/dL Calcium 8.3 L (8.4-10.2) mg/dL Calcium panel 12/22/17 Range/Units 05:56 Calcium 8.3 L (8.4-10.2) mg/dL Pituitary panel 12/22/17 Range/Units 05:56 Sodium 144 (137-145) mmol/L Potassium 3.7 (3.6-5.0) mmol/L Chloride 107.8 H (98-107) mmol/L Carbon Dioxide 27 (22-30) mmol/L BUN 24 H (9-20) mg/dL Creatinine 0.9 (0.8-1.5) mg/dL Glucose 118 H (75-100) mg/dL Calcium 8.3 L (8.4-10.2) mg/dL Adrenal panel 12/22/17 Range/Units 05:56 Sodium 144 (137-145) mmol/L Potassium 3.7 (3.6-5.0) mmol/L Chloride 107.8 H (98-107) mmol/L Carbon Dioxide 27 (22-30) mmol/L BUN 24 H (9-20) mg/dL Creatinine 0.9 (0.8-1.5) mg/dL Glucose 118 H (75-100) mg/dL Calcium 8.3 L (8.4-10.2) mg/dL
--- NOTE | 2017-12-22 16:28 | Cat Scan Report ---
FINAL REPORT PROCEDURE: CT ABDOMEN PELVIS W CON TECHNIQUE: Computerized axial tomography of the abdomen and pelvis was performed after the IV injection of iodinated nonionic contrast. HISTORY: ?abscess, perf diverticula COMPARISON: No prior studies are available for comparison. FINDINGS: Lower Lung campbell: No focal abnormality seen. Upper Abdomen: Small hiatal hernia visualized. There appears to be mild gastroesophageal reflux. Gallbladder is partially contracted otherwise unremarkable. The liver, the adrenal glands, the pancreas and spleen are unremarkable. Kidneys, Ureters and Urinary bladder: 1.2 centimeter low-density nodule seen anterior aspect middle 3rd right kidney which appears represent renal cortical cyst. Kidneys ureters and urinary bladder otherwise are unremarkable. Retroperitoneum: Mild atherosclerotic changes are seen in the abdominal aorta. No aneurysm is visualized. Nonspecific subcentimeter lymph nodes are seen in the retroperitoneum. No pathologically enlarged lymph nodes are identified. Bowel: There is an irregular-shaped fluid collection in the lower pelvis posterior to the urinary bladder seen best on image 106 series 2 axial image measuring 4.8 x 7.3 centimeter. Few small bubbles of gas are visualized. An abscess is suspected. The nathan of the sigmoid colon show moderate diffuse wall thickening. There is mild diverticulosis. The colon is otherwise unremarkable. Normal-appearing appendix is seen in the right lower quadrant. There are multiple loops of small bowel moderately fluid in gas distended in the mid abdomen. There appears to be a transition in the right lower quadrant. A least partial small bowel obstruction suspected. No free air is visualized. No ascites is seen. No free intraperitoneal gas is identified. Reproductive organs: Prostate gland does not appear to be significantly enlarged. Other: No acute bony abnormalities are seen. IMPRESSION: Slightly lobulated fluid collection with a few bubbles of gas visualized posterior to the urinary bladder in the lower pelvis. An abscess is suspected. No free air is seen. There is diverticulosis seen in the sigmoid colon and this could represent a diverticular abscess. Wall thickening is seen in the sigmoid colon. I suspect this is related to diverticulitis and abscess formation. Malignancy in the sigmoid colon not entirely excluded although probably less likely. A least partial small bowel obstruction suspected with transition in the right lower quadrant. Small renal cortical cyst visualized as described. Small hiatal hernia visualized. There appears to be mild gastroesophageal reflux.
--- NOTE | 2017-12-22 17:29 | Progress Note ---
Assessment and Plan Assessment and plan: 47 YO Male with No PMH presents to ED for evaluation. Pt states that he has experienced abdominal pain over the past 3 days with persistent symptoms over the same time frame. Pt states that pain is 6/10, crampy in nature, associated with nausea, and 3-4 episodes of vomiting, and one loose stools. Pt denies fever , chills, CP, Palpitations, Syncope, Trauma, BRBPR, unintentional weight loss, night sweats, BRBPR, hematuria, flank pain, or recent ill contacts. Pt seen and evaluated in ED and found to have SIRS, ARF, Diverticulosis with Perforated Viscus. Peritonitis Penuomperitoneum with possible perforated diverticulitis BRONWYN secondary to vasomotor nephropathy-improving Sepsis secondary to above Possible Pelvic abscess Plan Continue supportive care Mild elevation in leukocytosis- IR consulted for possible drainage Repeat CT abd and pelvis in am per discussion with surgery IV abx Pain control IVF- D5NS Encourage ambulation DVT/GI PROPHY History Interval history: Patient seen and examined No new fever today, resting comfortable Hospitalist Physical - Physical exam Narrative exam: General appearance: Present: mild distress - EENT Eyes: Present: PERRL ENT: hearing intact, clear oral mucosa, dentition normal - Neck Neck: Present: supple, normal ROM - Respiratory Respiratory effort: normal Respiratory: bilateral: CTA - Cardiovascular Rhythm: regular Heart Sounds: Present: S1 & S2. Absent: systolic murmur - Extremities Extremities: no ischemia, pulses intact, pulses symmetrical, No edema, normal temperature, normal color, Full ROM Peripheral Pulses: within normal limits - Abdominal General gastrointestinal: soft, tender, non-distended, normal bowel sounds - Integumentary Integumentary: Present: clear, warm, dry - Psychiatric Psychiatric: appropriate mood/affect, intact judgment & insight, memory intact, cooperative - Neurologic Neurologic: CNII-XII intact - Allied Health Allied health notes reviewed: nursing - Constitutional Vitals: Temp Pulse Resp BP Pulse Ox 98.5 F 103 H 22 167/111 99 12/22/17 04:47 12/22/17 14:01 12/22/17 14:01 12/22/17 14:01 12/22/17 14:01 General appearance: Present: no acute distress Results - Labs CBC & Chem 7: 12/22/17 05:56 12/22/17 05:56 Labs: Laboratory Last Values WBC 14.4 K/mm3 (4.5-11.0) H 12/22/17 05:56 RBC 3.80 M/mm3 (3.65-5.03) 12/22/17 05:56 Hgb 11.6 gm/dl (11.8-15.2) L 12/22/17 05:56 Hct 34.9 % (35.5-45.6) L 12/22/17 05:56 MCV 92 fl (84-94) 12/22/17 05:56 MCH 31 pg (28-32) 12/22/17 05:56 MCHC 33 % (32-34) 12/22/17 05:56 RDW 14.4 % (13.2-15.2) 12/22/17 05:56 Plt Count 262 K/mm3 (140-440) 12/22/17 05:56 Lymph % (Auto) 3.3 % (13.4-35.0) L 12/21/17 05:13 [place] % (Auto) 7.6 % (0.0-7.3) H 12/21/17 05:13 Eos % (Auto) 0.0 % (0.0-4.3) 12/21/17 05:13 Baso % (Auto) 0.2 % (0.0-1.8) 12/21/17 05:13 Lymph # 0.4 K/mm3 (1.2-5.4) L 12/21/17 05:13 [place] # 1.0 K/mm3 (0.0-0.8) H 12/21/17 05:13 Eos # 0.0 K/mm3 (0.0-0.4) 12/21/17 05:13 Baso # 0.0 K/mm3 (0.0-0.1) 12/21/17 05:13 Seg Neutrophils % 88.9 % (40.0-70.0) H 12/21/17 05:13 Seg Neutrophils # 11.8 K/mm3 (1.8-7.7) H 12/21/17 05:13 Sodium 144 mmol/L (137-145) 12/22/17 05:56 Potassium 3.7 mmol/L (3.6-5.0) 12/22/17 05:56 Chloride 107.8 mmol/L (98-107) H 12/22/17 05:56 Carbon Dioxide 27 mmol/L (22-30) 12/22/17 05:56 Anion Gap 13 mmol/L 12/22/17 05:56 BUN 24 mg/dL (9-20) H 12/22/17 05:56 Creatinine 0.9 mg/dL (0.8-1.5) 12/22/17 05:56 Estimated GFR > 60 ml/min 12/22/17 05:56 BUN/Creatinine Ratio 27 % 12/22/17 05:56 Glucose 118 mg/dL (75-100) H 12/22/17 05:56 Lactic Acid 1.80 mmol/L (0.7-2.0) 12/20/17 14:38 Calcium 8.3 mg/dL (8.4-10.2) L 12/22/17 05:56 Total Bilirubin 0.90 mg/dL (0.1-1.2) 12/20/17 13:15 AST 16 units/L (5-40) 12/20/17 13:15 ALT 13 units/L (7-56) 12/20/17 13:15 Alkaline Phosphatase 56 units/L (35-129) 12/20/17 13:15 Total Protein 8.2 g/dL (6.3-8.2) 12/20/17 13:15 Albumin 3.4 g/dL (3.9-5) L 12/20/17 13:15 Albumin/Globulin Ratio 0.7 % 12/20/17 13:15 Urine Color Yellow (Yellow) 12/20/17 13:49 Urine Turbidity Cloudy (Clear) 12/20/17 13:49 Urine pH 5.0 (5.0-7.0) 12/20/17 13:49 Ur Specific [place] 1.020 (1.003-1.030) 12/20/17 13:49 Urine Protein 100 mg/dl mg/dL (Negative) 12/20/17 13:49 Urine Glucose (UA) Neg mg/dL (Negative) 12/20/17 13:49 Urine Ketones Tr mg/dL (Negative) 12/20/17 13:49 Urine Blood Mod (Negative) 12/20/17 13:49 Urine Nitrite Neg (Negative) 12/20/17 13:49 Urine Bilirubin Neg (Negative) 12/20/17 13:49 Urine Urobilinogen < 2.0 mg/dL (<2.0) 12/20/17 13:49 Ur Leukocyte Esterase Neg (Negative) 12/20/17 13:49 Urine WBC (Auto) 5.0 /HPF (0.0-6.0) 12/20/17 13:49 Urine RBC (Auto) 2.0 /HPF (0.0-6.0) 12/20/17 13:49 U Epithel Cells (Auto) 1.0 /HPF (0-13.0) 12/20/17 13:49 Urine Mucus Few /HPF 12/20/17 13:49 - Imaging and Cardiology CT scan - abdomen: pending CT Scan - head: pending
[2017-12-23] MEDS: PROTONIX IV SCH (10:33)
[2017-12-23] MEDS: TUMS PO SCH ×2 (10:34→21:12)
[2017-12-23] MEDS ORDERED: THORAZINE PO PRN (11:53)
--- NOTE | 2017-12-23 11:53 | Progress Note ---
Assessment and Plan Assessment and plan: 47 YO Male with No PMH presents to ED for evaluation. Pt states that he has experienced abdominal pain over the past 3 days with persistent symptoms over the same time frame. Pt states that pain is 6/10, crampy in nature, associated with nausea, and 3-4 episodes of vomiting, and one loose stools. Pt denies fever , chills, CP, Palpitations, Syncope, Trauma, BRBPR, unintentional weight loss, night sweats, BRBPR, hematuria, flank pain, or recent ill contacts. Pt seen and evaluated in ED and found to have SIRS, ARF, Diverticulosis with Perforated Viscus. Peritonitis Penuomperitoneum with possible perforated diverticulitis BRONWYN secondary to vasomotor nephropathy-improving Sepsis secondary to above Possible Pelvic abscess Plan Continue supportive care Mild elevation in leukocytosis IR PLACED Drain Thorazine for hippcups Repeat CT abd and pelvis in am per discussion with surgery IV abx Pain control IVF- D5NS Encourage ambulation DVT/GI PROPHY History Interval history: Patient seen and examined No new fever today, resting comfortable. Hicupps today , spouse at bedside Hospitalist Physical - Physical exam Narrative exam: General appearance: Present: mild distress - EENT Eyes: Present: PERRL ENT: hearing intact, clear oral mucosa, dentition normal - Neck Neck: Present: supple, normal ROM - Respiratory Respiratory effort: normal Respiratory: bilateral: CTA - Cardiovascular Rhythm: regular Heart Sounds: Present: S1 & S2. Absent: systolic murmur - Extremities Extremities: no ischemia, pulses intact, pulses symmetrical, No edema, normal temperature, normal color, Full ROM Peripheral Pulses: within normal limits - Abdominal General gastrointestinal: soft, tender, non-distended, normal bowel sounds - Integumentary Integumentary: Present: clear, warm, dry - Psychiatric Psychiatric: appropriate mood/affect, intact judgment & insight, memory intact, cooperative - Neurologic Neurologic: CNII-XII intact - Allied Health Allied health notes reviewed: nursing - Constitutional Vitals: Temp Pulse Resp BP Pulse Ox 98.9 F 80 20 146/97 98 12/23/17 05:21 12/23/17 05:21 12/23/17 05:21 12/23/17 05:21 12/23/17 05:21 General appearance: Present: no acute distress Results - Labs CBC & Chem 7: 12/22/17 05:56 12/22/17 05:56 Labs: Laboratory Last Values WBC 14.4 K/mm3 (4.5-11.0) H 12/22/17 05:56 RBC 3.80 M/mm3 (3.65-5.03) 12/22/17 05:56 Hgb 11.6 gm/dl (11.8-15.2) L 12/22/17 05:56 Hct 34.9 % (35.5-45.6) L 12/22/17 05:56 MCV 92 fl (84-94) 12/22/17 05:56 MCH 31 pg (28-32) 12/22/17 05:56 MCHC 33 % (32-34) 12/22/17 05:56 RDW 14.4 % (13.2-15.2) 12/22/17 05:56 Plt Count 262 K/mm3 (140-440) 12/22/17 05:56 Lymph % (Auto) 3.3 % (13.4-35.0) L 12/21/17 05:13 [place] % (Auto) 7.6 % (0.0-7.3) H 12/21/17 05:13 Eos % (Auto) 0.0 % (0.0-4.3) 12/21/17 05:13 Baso % (Auto) 0.2 % (0.0-1.8) 12/21/17 05:13 Lymph # 0.4 K/mm3 (1.2-5.4) L 12/21/17 05:13 [place] # 1.0 K/mm3 (0.0-0.8) H 12/21/17 05:13 Eos # 0.0 K/mm3 (0.0-0.4) 12/21/17 05:13 Baso # 0.0 K/mm3 (0.0-0.1) 12/21/17 05:13 Seg Neutrophils % 88.9 % (40.0-70.0) H 12/21/17 05:13 Seg Neutrophils # 11.8 K/mm3 (1.8-7.7) H 12/21/17 05:13 Sodium 144 mmol/L (137-145) 12/22/17 05:56 Potassium 3.7 mmol/L (3.6-5.0) 12/22/17 05:56 Chloride 107.8 mmol/L (98-107) H 12/22/17 05:56 Carbon Dioxide 27 mmol/L (22-30) 12/22/17 05:56 Anion Gap 13 mmol/L 12/22/17 05:56 BUN 24 mg/dL (9-20) H 12/22/17 05:56 Creatinine 0.9 mg/dL (0.8-1.5) 12/22/17 05:56 Estimated GFR > 60 ml/min 12/22/17 05:56 BUN/Creatinine Ratio 27 % 12/22/17 05:56 Glucose 118 mg/dL (75-100) H 12/22/17 05:56 Lactic Acid 1.80 mmol/L (0.7-2.0) 12/20/17 14:38 Calcium 8.3 mg/dL (8.4-10.2) L 12/22/17 05:56 Total Bilirubin 0.90 mg/dL (0.1-1.2) 12/20/17 13:15 AST 16 units/L (5-40) 12/20/17 13:15 ALT 13 units/L (7-56) 12/20/17 13:15 Alkaline Phosphatase 56 units/L (35-129) 12/20/17 13:15 Total Protein 8.2 g/dL (6.3-8.2) 12/20/17 13:15 Albumin 3.4 g/dL (3.9-5) L 12/20/17 13:15 Albumin/Globulin Ratio 0.7 % 12/20/17 13:15 Urine Color Yellow (Yellow) 12/20/17 13:49 Urine Turbidity Cloudy (Clear) 12/20/17 13:49 Urine pH 5.0 (5.0-7.0) 12/20/17 13:49 Ur Specific [place] 1.020 (1.003-1.030) 12/20/17 13:49 Urine Protein 100 mg/dl mg/dL (Negative) 12/20/17 13:49 Urine Glucose (UA) Neg mg/dL (Negative) 12/20/17 13:49 Urine Ketones Tr mg/dL (Negative) 12/20/17 13:49 Urine Blood Mod (Negative) 12/20/17 13:49 Urine Nitrite Neg (Negative) 12/20/17 13:49 Urine Bilirubin Neg (Negative) 12/20/17 13:49 Urine Urobilinogen < 2.0 mg/dL (<2.0) 12/20/17 13:49 Ur Leukocyte Esterase Neg (Negative) 12/20/17 13:49 Urine WBC (Auto) 5.0 /HPF (0.0-6.0) 12/20/17 13:49 Urine RBC (Auto) 2.0 /HPF (0.0-6.0) 12/20/17 13:49 U Epithel Cells (Auto) 1.0 /HPF (0-13.0) 12/20/17 13:49 Urine Mucus Few /HPF 12/20/17 13:49
[2017-12-23] MEDS: FLAGYL 500 MG/100 ML 500 MG/100 ML BAG IV SCH ×3 (13:08→21:13)
[2017-12-23] MEDS: LEVAQUIN 500MG/100ML 500 MG/100 ML BAG IV SCH (13:09)
[2017-12-23] MEDS: D5NS 1,000 ML IV SCH ×2 (13:15→23:29)
--- NOTE | 2017-12-23 13:56 | Progress Note ---
Assessment and Plan 47 yo M with 1. pneumoperitoneum, secondary to complicated sigmoid diverticulitis with contained perforation 2. BRONWYN likely secondary to dehydration - improving 3. pelvic abscess s/p IR Drain Plan: 1. continue with clear liquids, will adv slowly 2. IVF - continue with maintenance fluids 3. prn pain and nausea control 4. DVT ppx 5. activity as tolerated 6. CBC ordered for am tomorrow 7. strict I/Os 8. home care consult, discussed with case management 9. IV abx Anticipate discharge in the next 48 hours if WBC improves and patient is clinically progressing with diet advancement. Thank you, please call with questions or concerns. Subjective Date of service: 12/23/17 Narrative: Pt seen and examined. c/o hiccups and intermittent reflux which improved after taking Tums. No f/c, abdominal pain, n/v. He tolerated clear liquids. He has had bowel movements and is passing flatus. He is passing urine easily without pain. Objective Vital Signs - 12hr 12/23/17 12/23/17 05:21 11:35 Temperature 98.9 F 98.8 F Pulse Rate 80 76 Respiratory 20 19 Rate Blood Pressure 146/97 159/97 O2 Sat by Pulse 98 99 Oximetry - General physical appearance Narrative Exam: Gen: AAOx3. NAD CV: S1, S2+ Resp: even and unlabored Abd: soft, NT, mildly distended. Transgluteal pelvic drain with purulent fluid - approximately 25cc in bulb Ext: no c/c/e - Labs 12/22/17 05:56 12/22/17 05:56
[2017-12-23] MEDS: SODIUM CHLORIDE FLUSH SYRINGE 10 ML IV SCH ×3 (14:42→21:13)
[2017-12-24] MEDS: FLAGYL 500 MG/100 ML 500 MG/100 ML BAG IV SCH ×3 (06:31→23:48)
[2017-12-24 08:04] LABS: Hematocrit 32.4 % (35.5-45.6); Hemoglobin 10.7 gm/dl (11.8-15.2); Mean Corpuscular HGB Conc 33 % (32-34); Mean Corpuscular Hemoglobin 30 pg (28-32); Mean Corpuscular Volume 91 fl (84-94); Platelet Count 257 K/mm3 (140-440); Red Blood Count 3.58 M/mm3 (3.65-5.03); Red Cell Distribution Width 14.6 % (13.2-15.2)
[2017-12-24] MEDS: LEVAQUIN 500MG/100ML 500 MG/100 ML BAG IV SCH (09:35)
[2017-12-24] MEDS: TUMS PO SCH ×2 (09:35→21:10)
[2017-12-24] MEDS: PROTONIX IV SCH (09:36)
[2017-12-24] MEDS: D5NS 1,000 ML IV SCH (09:36)
--- NOTE | 2017-12-24 11:45 | Progress Note ---
Assessment and Plan 47 yo M with 1. pneumoperitoneum, secondary to complicated sigmoid diverticulitis with contained perforation 2. BRONWYN likely secondary to dehydration - resolved 3. pelvic abscess s/p IR Drain Plan: 1. adv to full liquids 2. dc IVF 3. Prn PO pain control 4. DVT ppx 5. activity as tolerated, encouraged ambulation 6. CBC in am, WBC trending down 7. strict I/Os, monitor drain output 8. IV abx, will transition to PO on dc 9. pelvic fluid culture prelim - few gram pos cocci in pairs, few gram neg rods 10. home care consult, discussed with case management Patient's new address is: [address] [place] [address] D[address]. May be ready for discharge in am. Thank you, please call with questions or concerns. Subjective Date of service: 12/24/17 Narrative: Pt seen and examined. Feeling better. No abdominal pain. Having BMs and flatus. + Hiccups, received thorazine yesterday which made him feel unwell. No f/c, cp, sob, n/v. Tolerating clear liquid diet. Objective Vital Signs - 12hr 12/23/17 12/24/17 23:59 05:41 Temperature 98.4 F 98.2 F Pulse Rate 73 81 Respiratory 18 18 Rate Blood Pressure 143/84 156/104 O2 Sat by Pulse 98 98 Oximetry - General physical appearance Narrative Exam: Gen: AAOx3. NAD CV: S1, S2+ Resp: even and unlabored Abd: soft, mildy distended, NT. no r/r/g. R transgluateal drain with minimal serous fluid Ext: no c/c/e NGUYEN: 25cc/24 hours - Labs 12/24/17 07:10 12/22/17 05:56
--- NOTE | 2017-12-24 14:38 | Progress Note ---
Assessment and Plan Assessment and plan: 47 YO Male with No PMH presents to ED for evaluation. Pt states that he has experienced abdominal pain over the past 3 days with persistent symptoms over the same time frame. Pt states that pain is 6/10, crampy in nature, associated with nausea, and 3-4 episodes of vomiting, and one loose stools. Pt denies fever , chills, CP, Palpitations, Syncope, Trauma, BRBPR, unintentional weight loss, night sweats, BRBPR, hematuria, flank pain, or recent ill contacts. Pt seen and evaluated in ED and found to have SIRS, ARF, Diverticulosis with Perforated Viscus. Peritonitis Penuomperitoneum with possible perforated diverticulitis BRONWYN secondary to vasomotor nephropathy-improving Sepsis secondary to above Possible Pelvic abscess Plan Continue supportive care Mild elevation in leukocytosis ADVANCE DIET Fluids discontinued Home in am with home health IR PLACED Drain Thorazine for hippcups IV abx Pain control Encourage ambulation DVT/GI PROPHY History Interval history: Patient seen and examined No new fever today, resting comfortable. No further hiccups. Tolerating diet Hospitalist Physical - Physical exam Narrative exam: General appearance: Present: mild distress - EENT Eyes: Present: PERRL ENT: hearing intact, clear oral mucosa, dentition normal - Neck Neck: Present: supple, normal ROM - Respiratory Respiratory effort: normal Respiratory: bilateral: CTA - Cardiovascular Rhythm: regular Heart Sounds: Present: S1 & S2. Absent: systolic murmur - Extremities Extremities: no ischemia, pulses intact, pulses symmetrical, No edema, normal temperature, normal color, Full ROM Peripheral Pulses: within normal limits - Abdominal General gastrointestinal: soft, tender, non-distended, normal bowel sounds. NGUYEN drain in place - Integumentary Integumentary: Present: clear, warm, dry - Psychiatric Psychiatric: appropriate mood/affect, intact judgment & insight, memory intact, cooperative - Neurologic Neurologic: CNII-XII intact - Allied Health Allied health notes reviewed: nursing - Constitutional Vitals: Temp Pulse Resp BP Pulse Ox 98.2 F 81 18 156/104 98 12/24/17 05:41 12/24/17 05:41 12/24/17 05:41 12/24/17 05:41 12/24/17 05:41 General appearance: Present: no acute distress Results - Labs CBC & Chem 7: 12/24/17 07:10 09/21/18 05:56 Labs: Laboratory Last Values WBC 13.9 K/mm3 (4.5-11.0) H 12/24/17 07:10 RBC 3.58 M/mm3 (3.65-5.03) L 12/24/17 07:10 Hgb 10.7 gm/dl (11.8-15.2) L 12/24/17 07:10 Hct 32.4 % (35.5-45.6) L 12/24/17 07:10 MCV 91 fl (84-94) 12/24/17 07:10 MCH 30 pg (28-32) 12/24/17 07:10 MCHC 33 % (32-34) 12/24/17 07:10 RDW 14.6 % (13.2-15.2) 12/24/17 07:10 Plt Count 257 K/mm3 (140-440) 12/24/17 07:10 Lymph % (Auto) 3.3 % (13.4-35.0) L 12/21/17 05:13 [place] % (Auto) 7.6 % (0.0-7.3) H 12/21/17 05:13 Eos % (Auto) 0.0 % (0.0-4.3) 12/21/17 05:13 Baso % (Auto) 0.2 % (0.0-1.8) 12/21/17 05:13 Lymph # 0.4 K/mm3 (1.2-5.4) L 12/21/17 05:13 [place] # 1.0 K/mm3 (0.0-0.8) H 12/21/17 05:13 Eos # 0.0 K/mm3 (0.0-0.4) 12/21/17 05:13 Baso # 0.0 K/mm3 (0.0-0.1) 12/21/17 05:13 Seg Neutrophils % 88.9 % (40.0-70.0) H 12/21/17 05:13 Seg Neutrophils # 11.8 K/mm3 (1.8-7.7) H 12/21/17 05:13 Sodium 144 mmol/L (137-145) 12/22/17 05:56 Potassium 3.7 mmol/L (3.6-5.0) 12/22/17 05:56 Chloride 107.8 mmol/L (98-107) H 12/22/17 05:56 Carbon Dioxide 27 mmol/L (22-30) 12/22/17 05:56 Anion Gap 13 mmol/L 12/22/17 05:56 BUN 24 mg/dL (9-20) H 12/22/17 05:56 Creatinine 0.9 mg/dL (0.8-1.5) 12/22/17 05:56 Estimated GFR > 60 ml/min 12/22/17 05:56 BUN/Creatinine Ratio 27 % 12/22/17 05:56 Glucose 118 mg/dL (75-100) H 12/22/17 05:56 Lactic Acid 1.80 mmol/L (0.7-2.0) 12/20/17 14:38 Calcium 8.3 mg/dL (8.4-10.2) L 12/22/17 05:56 Total Bilirubin 0.90 mg/dL (0.1-1.2) 12/20/17 13:15 AST 16 units/L (5-40) 12/20/17 13:15 ALT 13 units/L (7-56) 12/20/17 13:15 Alkaline Phosphatase 56 units/L (35-129) 12/20/17 13:15 Total Protein 8.2 g/dL (6.3-8.2) 12/20/17 13:15 Albumin 3.4 g/dL (3.9-5) L 12/20/17 13:15 Albumin/Globulin Ratio 0.7 % 12/20/17 13:15 Urine Color Yellow (Yellow) 12/20/17 13:49 Urine Turbidity Cloudy (Clear) 12/20/17 13:49 Urine pH 5.0 (5.0-7.0) 12/20/17 13:49 Ur Specific [place] 1.020 (1.003-1.030) 12/20/17 13:49 Urine Protein 100 mg/dl mg/dL (Negative) 12/20/17 13:49 Urine Glucose (UA) Neg mg/dL (Negative) 12/20/17 13:49 Urine Ketones Tr mg/dL (Negative) 12/20/17 13:49 Urine Blood Mod (Negative) 12/20/17 13:49 Urine Nitrite Neg (Negative) 12/20/17 13:49 Urine Bilirubin Neg (Negative) 12/20/17 13:49 Urine Urobilinogen < 2.0 mg/dL (<2.0) 12/20/17 13:49 Ur Leukocyte Esterase Neg (Negative) 12/20/17 13:49 Urine WBC (Auto) 5.0 /HPF (0.0-6.0) 12/20/17 13:49 Urine RBC (Auto) 2.0 /HPF (0.0-6.0) 12/20/17 13:49 U Epithel Cells (Auto) 1.0 /HPF (0-13.0) 12/20/17 13:49 Urine Mucus Few /HPF 12/20/17 13:49
[2017-12-24] MEDS: SODIUM CHLORIDE FLUSH SYRINGE 10 ML IV SCH ×2 (16:04→21:11)
[2017-12-25] MEDS: FLAGYL 500 MG/100 ML 500 MG/100 ML BAG IV SCH ×2 (06:24→13:27)
[2017-12-25 06:41] LABS: Hemoglobin 10.9 gm/dl (11.8-15.2); Mean Corpuscular HGB Conc 33 % (32-34); Mean Corpuscular Hemoglobin 30 pg (28-32); Mean Corpuscular Volume 90 fl (84-94); Platelet Count 327 K/mm3 (140-440); Red Blood Count 3.67 M/mm3 (3.65-5.03); Red Cell Distribution Width 14.4 % (13.2-15.2)
[2017-12-25] MEDS: SODIUM CHLORIDE FLUSH SYRINGE 10 ML IV SCH (09:24)
[2017-12-25] MEDS: PROTONIX IV SCH (09:24)
[2017-12-25] MEDS: TUMS PO SCH (09:24)
[2017-12-25] MEDS: LEVAQUIN 500MG/100ML 500 MG/100 ML BAG IV SCH (09:25)
[2017-12-25 13:09] VITALS: BP 150/92
--- NOTE | 2017-12-25 13:16 | Discharge Summary ---
<JAZ FERNANDEZ - Last Filed: 12/25/17 14:41> Providers - Providers Date of Admission: 12/20/17 15:26 Attending physician: EVELINA OROPEZA MD 12/20/17 14:54 Consult to Physician [CONS] Urgent Comment: DR FERNANDEZ NOTIFIED Consulting Provider: JAZ FERNANDEZ Physician Instructions: Reason For Exam: perforated diverticula 12/22/17 12:20 Consult to Interventional Radiology [CONS] Routine Consulting Provider: JONO OBREGON Reason For Exam: pevic fluid likely abscess, perf diverticulitis Place consult to:: suzanne wilkerson Notified:: saadia Phone number called:: overhead page Was contact made?: No Time called:: 15:03 Comment:: md is aware of pt. note is in computer Primary care physician: [employer] PROGRAMMER Hospitalization Condition: Stable Disposition: DC/[place]-06 HOME UNDER HOME HLTH Exam - Constitutional Vitals: Temp Pulse Resp BP Pulse Ox 98.4 F 82 16 150/92 98 12/25/17 12:24 12/25/17 12:24 12/25/17 12:24 12/25/17 12:24 12/25/17 12:24 Plan Diet: advance as tolerated (advance to soft diet on . Keep yourself on a low fiber diet for the next two weeks, then advance to high fiber diet) Additional Instructions: Drain Care: empty drain every day and record output. Follow up with: JAZ FERNANDEZ DO [Staff Physician] - 7 Days PRIMARY MD ELMER [Primary Care Provider] - 3-5 Days TIM GRAHAM MD [Staff Physician] - 7 Days Prescriptions: Calcium Carbonate [Tums] 500 mg PO BID #14 tablet levoFLOXacin [Levaquin] 750 mg PO QDAY #7 tablet metroNIDAZOLE [Flagyl] 500 mg PO Q8HR #21 tablet oxyCODONE /ACETAMINOPHEN [Percocet 5/325] 1 tab PO Q6HR PRN #20 tablet PRN Reason: Pain Pantoprazole [Protonix TAB] 40 mg PO DAILY #30 tablet Sennosides Tab [Senokot] 8.6 mg PO BID #30 tablet <EVELINA OROPEZA - Last Filed: 12/25/17 16:35> Providers - Providers Date of Admission: 12/20/17 15:26 Attending physician: EVELINA OROPEZA MD 12/20/17 14:54 Consult to Physician [CONS] Urgent Comment: DR FERNANDEZ NOTIFIED Consulting Provider: JAZ FERNANDEZ Physician Instructions: Reason For Exam: perforated diverticula 12/22/17 12:20 Consult to Interventional Radiology [CONS] Routine Consulting Provider: JONO OBREGON Reason For Exam: pevic fluid likely abscess, perf diverticulitis Place consult to:: suzanne wilkerson Notified:: saadia Phone number called:: overhead page Was contact made?: No Time called:: 15:03 Comment:: md is aware of pt. note is in computer Primary care physician: [employer] PROGRAMMER Hospitalization Reason for admission: abdominal pain Hospital course: 47 YO Male with No PMH presents to ED for evaluation. Pt states that he has experienced abdominal pain over the past 3 days with persistent symptoms over the same time frame. Pt states that pain is 6/10, crampy in nature, associated with nausea, and 3-4 episodes of vomiting, and one loose stools. Pt denies fever , chills, CP, Palpitations, Syncope, Trauma, BRBPR, unintentional weight loss, night sweats, BRBPR, hematuria, flank pain, or recent ill contacts. Pt seen and evaluated in ED and found to have SIRS, ARF, Diverticulosis with Perforated Viscus. Surgery and vascular consult with interventional radiology placed a drain. Patient developed some he comes postprocedure this was resolved with Thorazine. Patient was seen by surgery IV fluids was discontinued patient continue antibiotics WBC trended down. Outputs of the drain was monitored closely. Pelvic fluid culture preliminary grew gram-positive cocci and a few gram-negative rods. The patient was discharged on antibiotics with Levaquin and Flagyl and to follow-up with surgery outpatient. Also did discuss insurance issues and the patient stated that he will rectify his insurance he's new address was updated to the [facility]. He is clinically stable for discharge Patient's new address is: [address] [place], [place] [id number] Peritonitis pneumoperitoneum, secondary to complicated sigmoid diverticulitis with contained perforation BRONWYN secondary to vasomotor nephropathy-improving Sepsis secondary to above Possible Pelvic abscess Time spent for discharge: 35 mins Core Measure Documentation - Palliative Care Palliative Care/ Comfort Measures: Not Applicable - Core Measures Any of the following diagnoses?: none - VTE Discharge Requirements Deep Vein Thrombosis/Pulmonary Embolism Present on Admission: No Exam - Physical Exam Narrative exam: General appearance: Present: mild distress - EENT Eyes: Present: PERRL ENT: hearing intact, clear oral mucosa, dentition normal - Neck Neck: Present: supple, normal ROM - Respiratory Respiratory effort: normal Respiratory: bilateral: CTA - Cardiovascular Rhythm: regular Heart Sounds: Present: S1 & S2. Absent: systolic murmur - Extremities Extremities: no ischemia, pulses intact, pulses symmetrical, No edema, normal temperature, normal color, Full ROM Peripheral Pulses: within normal limits - Abdominal General gastrointestinal: soft, tender, non-distended, normal bowel sounds. NGUYEN drain in place - Integumentary Integumentary: Present: clear, warm, dry - Psychiatric Psychiatric: appropriate mood/affect, intact judgment & insight, memory intact, cooperative - Neurologic Neurologic: CNII-XII intact - Allied Health Allied health notes reviewed: nursing - Constitutional Vitals: Temp Pulse Resp BP Pulse Ox 98.4 F 82 16 150/92 98 12/25/17 12:24 12/25/17 12:24 12/25/17 12:24 12/25/17 12:24 12/25/17 12:24 Plan Activity: advance as tolerated, fall precautions Diet: advance as tolerated (increase dietry fiber) Special Instructions: record daily BP diary, record blood sugar diary
--- NOTE | 2017-12-25 14:41 | Progress Note ---
Assessment and Plan 47 yo M with 1. pneumoperitoneum, secondary to complicated sigmoid diverticulitis with contained perforation 2. BRONWYN likely secondary to dehydration - resolved 3. pelvic abscess s/p IR Drain Plan: 1. full liquid diet, adv slowly to gi soft 2. Prn PO pain control 3. DVT ppx 4. activity as tolerated, encouraged ambulation 5. WBC trending down 6. strict I/Os, monitor drain output 7. IV abx, transition to PO on dc 9. pelvic fluid culture prelim - few gram pos cocci in pairs, few gram neg rods 10. home care consult set up D/W Dr. Shook. lindsey for dc home. Pt to follow up in office in 1 week. Thank you, please call with questions or concerns. Subjective Date of service: 12/25/17 Narrative: Pt seen and examined. No complaints. No more hiccups. + BM and flatus. Tolerating diet. No abd pain, n/v, f/c Objective Vital Signs - 12hr 12/25/17 12/25/17 05:56 12:24 Temperature 98.8 F 98.4 F Pulse Rate 81 82 Respiratory 20 16 Rate Blood Pressure 139/97 150/92 O2 Sat by Pulse 95 98 Oximetry - General physical appearance Narrative Exam: gen; AAOx3. NAD CV: S1, S2+ Resp: even and unlabored Abd: Soft, NT, ND. R transgluteal drain serous Ext: no c/c/e - Labs 12/25/17 05:10 12/22/17 05:56
[2017-12-26] MEDS ORDERED: PROTONIX PO SCH (10:00)
== END 2017-12-25 16:59 | disposition home health service (06) | DRG 871 ==
LOC: ED 12:08 → 3A 15:26
PROVIDERS: ADMIT Internal Medicine; ATTEND Internal Medicine
PROC: 0W9J30Z Drainage of Pelvic Cavity with Drainage Device, Percutaneous Approach (ICD-10-PCS; principal; 2017-12-22)
DX: A41.9 Sepsis, unspecified organism (principal); N17.0 Acute kidney failure with tubular necrosis; K57.20 Diverticulitis of large intestine with perforation and abscess without bleeding; F12.90 Cannabis use, unspecified, uncomplicated; R65.10 Systemic inflammatory response syndrome (SIRS) of non-infectious origin without acute organ dysfunction; K57.30 Diverticulosis of large intestine without perforation or abscess without bleeding
CPT/HCPCS: 10160; 36415; 74176; 74177; 77012; 80048; 80053; 81001; 82140; 82962; 85025; 85027; 87040; 87116; 96361; 96365; 96372; 96375; C1769; C9113; J0500; J0692; J1885; J1956; J2250; J2543; J3010; J7030; J7042; Q0161; Q0162; Q9967